=== PATIENT | female | born 1960 | race Caucasian/White ===

== ENCOUNTER 2022-05-12 11:03 | Outpatient (CLI) | payer OTHER, SELFPAY ==
[2022-05-12 17:39] LABS: Kit Draw Collected
== END 2022-05-12 11:04 | disposition home or self-care (01) ==
LOC: ANHGOSHLAB 11:05
PROVIDERS: PCP Family Medicine; Visit Provider Nurse Practitioner Family
DX: E78.2 Mixed hyperlipidemia (principal); E03.9 Hypothyroidism, unspecified; E55.9 Vitamin D deficiency, unspecified; I10 Essential (primary) hypertension
CPT/HCPCS: 36415

== ENCOUNTER → 2022-07-14 10:10 | Outpatient (CLI) | payer OTHER, SELFPAY ==
--- NOTE | ~2022-07-14 | DEXA_ITS ---
Bone Density Report Name: RENETTA BOWEN Age: 62 Sex: Female Ethnicity: White Date of : 1960 Indication: postmenopausal; screening for osteoporosis; prior fracture; Referring Provider: Mary Portillo Study: Bone densitometry was performed. Exam Date: July 14, 2022 Accession number: [id number] Bone Density: Region BMD T-score Z-score Classification AP Spine (L1-L4) 1.041 -0.1 1.4 Normal Femoral Neck (Left) 0.631 -2.0 -0.7 Osteopenia Total Hip (Left) 0.876 -0.5 0.4 Normal Femoral Neck (Right) 0.671 -1.6 -0.3 Osteopenia Total Hip (Right) 0.865 -0.6 0.3 Normal Total Hip Mean 0.871 -0.6 0.4 Normal World Health Organization criteria for BMD impression classify patients as: Normal (T-score at or above -1.0), Osteopenia (T-score between -1.0 and -2.5), or Osteoporosis (T-score at or below -2.5). 10-year Fracture Risk: FRAX not reported because: Prior hip or vertebral fracture Clinical Information Provided by Patient: Have had a previous hip or vertebral fracture Has had a low trauma fracture Has used the following medications: Vitamin D, Calcium Patient maximum height was 65.0 Menopause Age: 52 Drinks caffeinated beverages Onset of menses at age 13 Number of children 1 Impression: The patient has low bone mass, based on the Left Femoral Neck T-score. The patient has risk factors, including: previous fracture. Discussion: INCREASED RISK OF FRACTURE DUE TO HISTORY OF FRACTURE. The patient's previous fracture puts the patient at high risk of a future fracture. In untreated patients, the risk of osteoporotic fracture increases approximately two-fold for each 1.0 SD decrease in T-score. Low bone density is not the only risk factor for fracture; also consider factors such as patient's age, frailty or poor health, risk of falling, risk of injury, previous osteoporotic fracture, family history of osteoporosis, cigarette smoking, low body weight, etc. Not everyone with a low trauma fracture has osteoporosis; osteomalacia and other metabolic bone disorders should also be considered. Patients who have osteoporosis should be evaluated for specific diseases and conditions (secondary causes) that may cause or contribute to bone loss and fracture risk. National Osteoporosis Foundation (NOF) recommends pharmacologic intervention for patients with a prior hip or vertebral fracture regardless of BMD T-score. The patient should follow a healthful lifestyle (good nutrition with adequate calcium and vitamin D, and appropriate weight-bearing exercise). Follow-Up: Consider a repeat BMD and Vertebral Fracture Assessment (VFA) exam in 2 years or sooner if medically necessary, to reassess this patient's status. Reported by: JULIEN on 07/14/2022 10:46:00 AM. Review
== END ==
PROVIDERS: PCP Nurse Practitioner Family; Visit Provider Nurse Practitioner Family
DX: Z78.0 Asymptomatic menopausal state (principal); M85.852 Other specified disorders of bone density and structure, left thigh; M85.851 Other specified disorders of bone density and structure, right thigh
CPT/HCPCS: 77080

== ENCOUNTER 2022-11-13 09:40 | Outpatient (CLI) | payer OTHER, SELFPAY ==
[2022-11-13 18:36] LABS: Alanine Aminotransferase 37 U/L (6-35); Albumin Level 4.7 g/dL (3.5-5.1); Alkaline Phosphatase 79 U/L (38-126); Anion Gap 8 mmol/L (8-16); Aspartate Amino Transferase 40 U/L (14-36); Basophils Absolute Auto 0.1 K/mm3 (0.0-0.1); Bilirubin,Total 0.7 mg/dL (0.2-1.3); Blood Urea Nitrogen 13 mg/dL (7-17); Calcium 8.9 mg/dL (8.4-10.2); Carbon Dioxide 29 mmol/L (22-30); Chloride 101 mmol/L (98-107); Cholesterol 186 mg/dL (0-200); Eosinophils Absolute Auto 0.1 K/mm3 (0-0.3); Eosinophils Percent Auto 2.3 % (0-4.4); Estimated Glomerular Filt Rate > 60; Glucose 114 mg/dL (65-110); HDL Direct 75 mg/dL; Hematocrit 43.1 % (37.0-47.0); Hemoglobin 13.6 g/dL (12.0-15.0); Immature Granulocyte Absolute 0.01 K/mm3 (0.00-0.031); Immature Granulocyte Percent A 0.2 % (0-0.5); Lymphocytes Absolute Auto 1.16 K/mm3 (0.9-3.2); Lymphocytes Percent Auto 19.3 % (18.3-44.2); Mean Corpuscular HGB Conc 31.6 g/dl (32-36); Mean Corpuscular Hemoglobin 31.2 pg (26-34); Mean Corpuscular Volume 98.9 fl (80-100); Mean Platelet Volume 10.9 fl (7.4-10.4); Monocytes Absolute Auto 0.6 K/mm3 (0.1-0.6); Monocytes Percent Auto 9.6 % (2.6-8.5); Neutrophils Absolute Auto 4.1 K/mm3 (1.3-6.7); Neutrophils Percent Auto 67.6 % (45.5-73.1); Platelet Count Result 330 k/mm3 (150-375); Potassium 4.6 mmol/L (3.4-5.0); Red Blood Count 4.36 M/mm3 (4.2-5.4); Red Cell Distribution Width 13.4 % (11.5-14.5); Sodium 138 mmol/L (137-145); Triglycerides 185 mg/dL (<150)
[2022-11-13 18:47] LABS: LDL Cholesterol Direct 81 mg/dL
[2022-11-17 08:55] LABS: Vitamin D 1,25 (OH)2 Total 58 pg/mL (18-72); Vitamin D2 1,25 (OH)2 <8 pg/mL; Vitamin D3 1,25 (OH)2 58 pg/mL
== END 2022-11-13 09:41 | disposition home or self-care (01) ==
LOC: ANHGOSHLAB 09:41
PROVIDERS: PCP Nurse Practitioner Family; Visit Provider Nurse Practitioner Family
DX: E03.9 Hypothyroidism, unspecified (principal); E78.2 Mixed hyperlipidemia; E55.9 Vitamin D deficiency, unspecified
CPT/HCPCS: 36415; 80053; 80061; 82652; 84443; 85025

== ENCOUNTER 2023-05-26 11:05 | Outpatient (CLI) | payer OTHER, SELFPAY ==
[2023-05-26 21:14] LABS: Alanine Aminotransferase 22 U/L (6-35); Aspartate Amino Transferase 36 U/L (14-36)
== END 2023-05-26 11:06 | disposition home or self-care (01) ==
LOC: ANHGOSHLAB 11:07
PROVIDERS: PCP Nurse Practitioner Family
DX: B35.1 Tinea unguium (principal)
CPT/HCPCS: 36415; 84450; 84460

== ENCOUNTER 2024-03-23 11:23 | Outpatient (CLI) | payer OTHER, SELFPAY ==
[2024-03-23 18:37] LABS: Basophils Absolute Auto 0.1 K/mm3 (0.0-0.1); Basophils Percent Auto 1.3 % (0.2-1.2); Eosinophils Absolute Auto 0.1 K/mm3 (0-0.3); Eosinophils Percent Auto 2.2 % (0-4.4); Hematocrit 39.8 % (37.0-47.0); Hemoglobin 13.1 g/dL (12.0-15.0); Immature Granulocyte Absolute 0.02 K/mm3 (0.00-0.031); Immature Granulocyte Percent A 0.4 % (0-0.5); Lymphocytes Absolute Auto 1.31 K/mm3 (0.9-3.2); Lymphocytes Percent Auto 23.5 % (18.3-44.2); Mean Corpuscular HGB Conc 32.9 g/dl (32-36); Mean Corpuscular Hemoglobin 32.5 pg (26-34); Mean Corpuscular Volume 98.8 fl (80-100); Mean Platelet Volume 10.4 fl (7.4-10.4); Monocytes Absolute Auto 0.6 K/mm3 (0.1-0.6); Monocytes Percent Auto 11.3 % (2.6-8.5); Neutrophils Absolute Auto 3.4 K/mm3 (1.3-6.7); Neutrophils Percent Auto 61.3 % (45.5-73.1); Platelet Count Result 336 k/mm3 (150-375); Red Blood Count 4.03 M/mm3 (4.2-5.4); Red Cell Distribution Width 13.7 % (11.5-14.5); White Blood Count 5.6 K/mm3 (4.5-10.0)
[2024-03-23 18:44] LABS: Alanine Aminotransferase 30 U/L (6-35); Albumin Level 4.6 g/dL (3.5-5.1); Alkaline Phosphatase 73 U/L (38-126); Anion Gap 9 mmol/L (4-12); Aspartate Amino Transferase 40 U/L (14-36); Bilirubin,Total 0.7 mg/dL (0.2-1.3); Blood Urea Nitrogen 11 mg/dL (7-17); Calcium 9.2 mg/dL (8.4-10.2); Carbon Dioxide 27 mmol/L (22-30); Chloride 99 mmol/L (98-107); Cholesterol 193 mg/dL (0-200); Estimated Glomerular Filt Rate > 60; Glucose 119 mg/dL (65-110); HDL Direct 85 mg/dL; Potassium 4.4 mmol/L (3.4-5.0); Sodium 135 mmol/L (137-145); Triglycerides 127 mg/dL (<150)
[2024-03-23 18:56] LABS: LDL Cholesterol Direct 77 mg/dL
[2024-03-23 19:37] LABS: Vitamin D 25 Hydroxy 67.9 ng/mL
== END 2024-03-23 11:24 | disposition home or self-care (01) ==
LOC: ANHGOSHLAB 11:23
PROVIDERS: PCP Family Medicine; Visit Provider Family Medicine
DX: E78.5 Hyperlipidemia, unspecified (principal); I10 Essential (primary) hypertension; Z13.29 Encounter for screening for other suspected endocrine disorder; E53.8 Deficiency of other specified B group vitamins; E55.9 Vitamin D deficiency, unspecified; Z00.00 Encounter for general adult medical examination without abnormal findings; R73.9 Hyperglycemia, unspecified
CPT/HCPCS: 36415; 80053; 80061; 82306; 82607; 83036; 84443; 85025

== ENCOUNTER 2025-04-03 08:34 | Outpatient (CLI) | payer OTHER, SELFPAY ==
--- OUTSIDE RECORDS SUMMARY | 2025-04-03 08:46 | XMS_ITS | Encounter Summary ---
Author Organization [employer] Address 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
--- OUTSIDE RECORDS SUMMARY | 2025-04-03 08:46 | XMS_ITS | Encounter Summary ---
Author Organization [facility] Address [address] [place] [address] Care Team Providers Care Nurse Case Management Name Role Phone Suresh Kendall MD Primary Care Provider +1- [phone] Encounter Details Date Type Department Care Team (Late st Contact Info) Description 02/23/2003 Outpatient Historical [facility] Primary Care - [address] [place] [address] Jay Bermeo Social History Tobacco Use Types Packs/Day Years Used Date Smoking Tobacco: Never Assessed Comments Unknown Sex and Gender Information Value Date Recorded Sex Assigned at Not on file 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
--- OUTSIDE RECORDS SUMMARY | 2025-04-03 08:46 | XMS_ITS | Encounter Summary ---
Author Organization [facility] Address 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
--- OUTSIDE RECORDS SUMMARY | 2025-04-03 08:46 | XMS_ITS | Encounter Summary ---
Author Organization [facility] Address [address] [place] [address] Care Team Providers Care Hydraulic Repairer Name Role Phone Suresh Kendall MD Primary Care Provider +1- [phone] Encounter Details Date Type Department Care Team (Late st Contact Info) Description 10/12/[address] 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 TOBACCO USE Patient does not currently use tobacco. MEDICATIONS: Medication list current. CHIEF COMPLAINT Patient complains of.having a rash that started by armpit and has spread all over from under breast to face and eyes HISTORY: HISTORY: 477.0-ALLERGIC RHINITIS, DUE TO POLLEN The allergic rhinitis symptoms have worsened with persistentsymptoms noted since the last visit. The patient has coryza, has rhinorrhea, denies sneezing, denies watery eye. rash, periorbital swelling PAST MEDICAL HISTORY: MEDICAL: see patient sheet for review of med/all/pmh/psh/sh/fh/ros PHYSICAL EXAMINATION: CONSTITUTIONAL: GENERAL APPEARANCE: MILDLY DISTRESSED. NECK/THYROID: Trachea midline. No thyroid enlargement, tenderness, or mass. No supraclavicular or cervical adenopathy. RESPIRATORY: Clear to auscultation and percussion. Normal respiratory effort. CARDIOVASCULAR: CARDIAC: Regular rhythm. No murmurs, rubs, or gallops. ARTERIAL: No aortic bruits. EDEMA/VARICOSITIES OF EXTREMITIES: No edema or varicosities. GASTROINTESTINAL: ABDOMEN: Soft, non-tender, without masses. Bowel sounds active. LIVER/SPLEEN/KIDNEY: No hepatosplenomegaly, tenderness or nodularity. Kidneys not palpable. SKIN: SKIN: periorbital edema and inflammation, widespread excoriated reash OFFICE PROCEDURES: INJECTIONS & IMMUNIZATIONS: . DEPO MEDROL 40, 80, MILLILITERS, INTRAMUSCULAR INJECTION, Left Buttocks, given by bertrand on 10/12/2006; consent form signed, literature not given; ASSESSMENT/PLAN: 477.0-ALLERGIC RHINITIS, DUE TO POLLEN ASSESSMENT: The patient's allergic rhinitis has worsened. Will start medication for better control. MEDICATIONS: 780.6-FEVER OF UNKNOWN ORIGIN ???in setting of periorbital edema? severe rash? MEDICATIONS: PREDNISONE ORAL TABLET 10 MG, 3 po qday x 4 day 2 po qday x 4 day 1 po qday x 4 day, 24 Dispensed, status: NEW PRESCRIPTION, 10/12/2006. LAB ORDERS: Order number: [id number] Test Ordered: ALLERGY PANEL REGION VIII 5640 Order number: [id number] Test Ordered: VIVI (SCREEN W/REFLEX TITER) 5200 Order number: [id number] Test Ordered: CBC W/ DIFFERENTIAL 3150 Order number: [id number] Test Ordered: COMPREHENSIVE METABOLIC PANEL & GFR 1112 Order number: [id number] Test Ordered: TSH (REFLEX FREE T4/FREE T3) 1727 782.1-RASH LAB ORDERS: Order number: [id number] Test Ordered: INJ-DEPO MEDROL 80MG J1040 SPECIALTY REFERRAL: CREDIT NEGOTIATOR Dr. Evelio Schaffer ph: [phone] fax: [phone].if not improving in one week HEALTH MAINTENANCE: LAST BREAST EXAM DATE: 2004. LAST PAP DATE: 2005. LAST DATE PELVIC EXAM: 2005. LAST MAMMOGRAM DATE: 2004. DISCUSSED SMOKING: no. LAST TD: unknown SEXUAL ACTIVITY DISCUSSED: . SUBSTANCE ABUSE DISCUSSED: no. INJURY PREVENTION DISCUSSED: no. DIET AND EXERCISE DISCUSSED: yes. ADVANCED DIRECTIVES DISCUSSED: no. LAST FLU VACCINE:no LAST PNEUMOCOCCAL:no Electronically Signed by: Abraham Abbott MD on Tuesday, April 03, 2007 documented in this encounter Plan of Treatment Not on file documented as of this encounter Visit Diagnoses Not on filedocumented in this encounter Care Teams Hydraulic Repairer Relationship Specialty Start Date End Date Suresh Kendall MD [address] [place] [address] PCP - General Family Practice 04/23/16 documented as of this encounter
--- OUTSIDE RECORDS SUMMARY | 2025-04-03 08:46 | XMS_ITS | Encounter Summary ---
Author Organization [employer] Address 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
--- OUTSIDE RECORDS SUMMARY | 2025-04-03 08:46 | XMS_ITS | Encounter Summary ---
Author Organization [facility] Address [address] [place] [address] Care Team Providers Care Inventory Management Specialist Name Role Phone Suresh Kendall MD Primary Care Provider +1- [phone] Encounter Details Date Type Department Care Team (Late st Contact Info) Description 10/12/[address] [facility] Primary Care - [address] [place] [address] Abraham Abbott MD [address] 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
--- OUTSIDE RECORDS SUMMARY | 2025-04-03 08:46 | XMS_ITS | Encounter Summary ---
Author Organization [facility] Address [address] [place] [address] Care Team Providers Care Test Fixture Assembler Name Role Phone Suresh Kendall MD Primary Care Provider +1- [phone] Encounter Details Date Type Department Care Team (Latest Contact Info) Description 10/12/2006 Outpatient Historical [facility] Primary Care - [address] [place] [address] Fever (Primary Dx) Social History Tobacco Use Types Packs/Day Years Used Date Smoking Tobacco: Never Assessed Comments Unknown Sex and Gender Information Value Date Recorded Sex Assigned at Not on file Legal Sex Female 5:24 AM EP SPECIALIST Gender Identity Not on file Sexual Orientation Not on file documented as of this encounter Plan of Treatment Not on file documented as of this encounter Procedures Procedure Name Priority Date/Time Associated Diagnosis Comments ALLERGY PROFILE, INTERPRETATION Routine 10/12/2006 6:35 PM CDT TSH WITH REFLEX FT4 AND FT3 Routine 10/12/2006 6:35 PM CDT ALLERGY PANEL (EAST REGION) Routine 10/12/2006 6:35 PM CDT CBC WITH DIFFERENTIAL Routine 10/12/2006 6:35 PM CDT CBC WITH DIFFERENTIAL Routine 10/12/2006 6:35 PM CDT COMPREHENSIVE METABOLIC PANEL Routine 10/12/2006 6:35 PM CDT VIVI WITH TITER Routine 10/12/2006 3:00 PM CDT documented in this encounter Results * ALLERGY PROFILE, INTERPRETATION (10/12/2006 6:35 PM CDT) Pathologist [facility] RAST INTERP INTERFAC E SYSTEM Comment: Specific Level of Allergen IGE Class kU/L Specific IGE Antibody ----- --------- 0 <0.35 Absent/Undetectable 1 0.35-0.70 Low Level 2 0.71-3.50 Moderate Level 3 3.51-17.5 High Level 4 17.6-50 Very High Level 5 51-100 Very High Level 6 >100 Very High Level Allergens denoted with a include results using one or more analyte specific reagents. In those cases, the test was developed and its performance characteristics determined by [employer]. It has not been cleared or approved by the U.S. Food and Drug Administration. The FDA has determined that such clearance is not necessary. Lab test performed by: [employer] [id number] [address] CISCO EDDY MD See Result Comment 10/12/2006 6:3 5 PM CDT Narrative INTERFACE SYSTEM - 10/13/2006 7:27 PM CDT Ordered by an unspecified provider. us Historical Provider CHEMISTRY ORDERABLES Edited INTERFACE SYSTEM Refer to clinic/hospital department * (ABNORMAL) ALLERGY PANEL REGION VIII (10/12/2006 6:35 PM CDT) [facility] IGE 12 <VC=911 kU/L INTERFACE SYSTEM Comment: Lab test performed by: [facility] [id number] [facility] [place] [address] [address] CISCO EDDY MD DERMATOPHAGOIDES PTERONYSSINUS IGE <0.35 kU/L INTERFACE SYSTEM D. PTERONYSSINUS % RESP(CLASS) 0 INTERFACE SYSTEM DERMATOPHAGOIDES FARINAE IGE <0.35 kU/L INTERFACE SYSTEM D. FARINAE % RESP (CLASS) 0 INTERFACE SYSTEM CLADOSPORIUM HERBARUM IGE <0.35 kU/L INTERFACE SYSTEM CLADOSPORIUM HERB %RESP(CLASS) 0 INTERFACE SYSTEM A. FUMIGATUS IGE <0.35 kU/L INT ERFACE SYSTEM A. FUMIGATUS % RESP (CLASS) 0 INTERFACE SYSTEM A. ALTERNATA IGE 0.70(H) kU/L INT ERFACE SYSTEM A. ALTERNATA % RESP (CLASS) 2 INTERFACE SYSTEM Comment: Lab test performed by: [facility] [address] [facility] [address] [address] CISCO EDDY MD BOX-ELDER IGE <0.35 kU/L INTERF DOM SYSTEM BOX-ELDER % RESP (CLASS) 0 INTERFACE SYSTEM Comment: Lab test performed by: [facility] [address] [place] [address] [address] CISCO EDDY MD CAT DANDER IGE <0.35 kU/L INTER FACE SYSTEM CAT DANDER % RESP (CLASS) 0 INTERFACE SYSTEM DOG DANDER IGE <0.35 kU/L INTER FACE SYSTEM DOG DANDER % RESP (CLASS) 0 INTERFACE SYSTEM Comment: Lab test performed by: [facility] [place] [address] [place] [address] DR CISCO EDDY MD COCKROACH IGE <0.35 kU/L INTERF DOM SYSTEM COCKROACH % RESP (CLASS) 0 INTERFACE SYSTEM Comment: Lab test performed by: [facility] [place] [address] [facility] [address] DR CISCO EDDY MD ORCHARD GRASS IGE 0.40(H) kU/L IN TERFACE SYSTEM ORCHARD GRASS % RESP (CLASS) 1 INTERFACE SYSTEM Comment: Lab test performed by: [facility] [place] [address] [place] [address] DR CISCO EDDY MD COMMON RAGWEED IGE <0.35 kU/L I NTERFACE SYSTEM COMMON RAGWEED % RESP CLASS 0 INTERFACE SYSTEM Comment: Lab test performed by: [facility] [place] [address] [place] [address] [address] CISCO EDDY MD BIRCH IGE <0.35 kU/L INTERFACE SYSTEM BIRCH % RESP (CLASS) 0 INTERFACE SYSTEM Comment: Lab test performed by: [facility] [place] [address] [facility] [address] DR CISCO EDDY MD OAK IGE <0.35 kU/L INTERFACE SYSTEM OAK % RESP (CLASS) 0 I NTERFACE SYSTEM ELM IGE <0.35 kU/L INTERFACE SYSTEM ELM % RESP (CLASS) 0 I NTERFACE SYSTEM Comment: Lab test performed by: [facility] [place] [address] [place] [address] [address] CISCO EDDY MD ALANA GRASS IGE 0.40(H) kU/L INTER FACE SYSTEM ALANA GRASS % RESP (CLASS) 1 INTERFACE SYSTEM Comment: Lab test performed by: [facility] [place] [address] [place] [address] DR CISCO EDDY MD ALLERGEN RG CARRANZA ELDER <0.35 kU/L INTERFACE SYSTEM ROUGH CARRANZA ELDER %RESP(CLASS) 0 INTERFACE SYSTEM Comment: Lab test performed by: [facility] [place] [address] [place] [address] [address] CISCO EDDY MD 10/12/2006 6:35 PM CDT us Abraham Abbott MD CHEMISTRY ORDERABLES Edited Performing Organization Address [facility] de Phone Number INTERFACE SYSTEM Refer to clinic/hospital department * CBC WITH DIFFERENTIAL (10/12/2006 6:35 PM CDT) Pathologist [facility] NEUTROPHILS 62 45 - 70 % INTERFAC E SYSTEM LYMPHOCYTES 26 16 - 45 % INTERFAC E SYSTEM MONOCYTES 8 3 - 13 % INTERFACE SYSTEM EOSINOPHILS 3 0 - 7 % INTERFAC E SYSTEM BASOPHILS 1 0 - 2 % INTERFACE SYSTEM NEUTROPHIL ABSOLUTE 3.99 1.90 - 7.00 K/uL INTERFACE SYSTEM LYMPHOCYTE ABSOLUTE 1.68 0.70 - 4.50 K/uL INTERFACE SYSTEM MONOCYTE ABSOLUTE 0.49 0.10 - 1.30 K/uL INTERFACE SYSTEM EOSINOPHIL ABSOLUTE 0.20 0.00 - 0.70 K/uL INTERFACE SYSTEM BASOPHILS ABSOLUTE 0.06 0.00 - 0.20 K/uL INTERFACE SYSTEM 10/12/2006 6:35 PM CDT us Abraham Abbott MD HEMATOLOGY ORDERABLES Edited Performing Organization Address [facility] de Phone Number INTERFACE SYSTEM Refer to clinic/hospital department * CBC WITH DIFFERENTIAL (10/12/2006 6:35 PM CDT) WBC 6.4 4.0 - 9.8 K/uL INTERFACE SYSTEM RBC 4.26 3.90 - 4.90 M/uL INTERFACE SYSTEM HEMOGLOBIN 13.3 11.8 - 14.8 g/dL INTERFACE SYSTEM HEMATOCRIT 40.1 35.5 - 44.0 % INTERFACE SYSTEM MCV 94.1 82.0 - 99.0 fL INTERFACE SYSTEM MCH 31.2 27.2 - 32.6 pg INTERFACE SYSTEM MCHC 33.2 31.5 - 35.5 % INTERFACE SYSTEM RDW 13.2 11.5 - 14.5 % INTERFACE SYSTEM RDW-STDEV 45.1 37.1 - 48.7 fL INTERFACE SYSTEM PLATELETS 319 140 - 350 K/uL INTERFACE SYSTEM MPV 11.9 9.3 - 12.4 fL INTERFACE SYSTEM 10/12/2006 6:35 PM CDT Abraham Abbott MD HEMATOLOGY ORDERABLES Edited Performing Organization Address [facility] de Phone Number INTERFACE SYSTEM Refer to clinic/hospital department * TSH WITH REFLEX FT4 AND FT3 (10/12/2006 6:35 PM CDT) Pathologist [facility] TSH 3.29 0.27 - 4.20 uU/mL INTERFACE SYSTEM 10/12/2006 6:35 PM CDT Abraham Abbott MD CHEMISTRY ORDERABLES Edited Performing Organization Address [facility] Phone Number INTERFACE SYSTEM Refer to clinic/hospital department * (ABNORMAL) COMPREHENSIVE METABOLIC PANEL (10/12/2006 6:35 PM CDT) GLUCOSE 98 65 - 99 mg/dL INTERFACE SYSTEM CREATININE 0.65 0.51 - 0.95 mg/dL INTERFACE SYSTEM CALCIUM 8.7 8.4 - 10.2 mg/dL INTERFACE SYSTEM ALKALINE PHOSPHATASE 70 35 - 104 U/L INTERFACE SYSTEM AST 36(H) 12 - 32 U/L INTERFACE SYSTEM ALT 55(H) 0 - 31 U/L INTERFACE SYSTEM TOTAL PROTEIN 7.4 6.3 - 8.6 g/dL INTERFACE SYSTEM ALBUMIN 4.5 3.4 - 4.8 g/dL INTERFACE SYSTEM BILIRUBIN TOTAL 0.3 0.2 - 1.0 mg/dL INTERFACE SYSTEM BUN 13 6 - 20 mg/dL INTERFACE SYSTEM SODIUM 137 135 - 145 mmol/L INTERFACE SYSTEM POTASSIUM 3.9 3.5 - 4.9 mmol/L INTERFACE SYSTEM CHLORIDE 102 96 - 108 mmol/L INTERFACE SYSTEM CO2 24 22 - 30 mmol/L INTERFACE SYSTEM GFR, >60 >=60 mL/min/1.7 sq meter INTERFACE SYSTEM GFR >60 >=60 mL/min/1.7 sq meter INTERFACE SYSTEM Comment: Estimated GFR rate interpretative information for both Americans and non- Americans is available on the [facility] at: [email or web address] Select: Lab Policies and Procedures Select: Reference Ranges - GFR 10/12/2006 6:35 PM CDT Abraham Abbott MD CHEMISTRY ORDERABLES Edited Performing Organization Address [facility] de Phone Number INTERFACE SYSTEM Refer to clinic/hospital department * VIVI WITH TITER (10/12/2006 3:00 PM CDT) VIVI SCREEN NEGATIVE NEGATIVE INTERFACE SYSTEM Comment: Lab test performed by: [facility] [place] [address] [place] [address] [address] CISCO EDDY MD 10/12/2006 3:00 PM CDT Abraham Abbott MD CHEMISTRY ORDERABLES Edited Performing Organization Address [facility] Co de Phone Number INTERFACE SYSTEM Refer to clinic/hospital department documented in this encounter Visit Diagnoses Diagnosis Fever and other physiologic disturbances of temperature regulation- Primary documented in this encounter Care Teams Test Fixture Assembler Relationship Specialty Start Date End Date Suresh Kendall MD [address] [place] [address] PCP - General Family Practice 04/23/16 documented as of this encounter
--- OUTSIDE RECORDS SUMMARY | 2025-04-03 08:46 | XMS_ITS | Encounter Summary ---
Author Organization [facility] Address [address] [place] [address] Care Team Providers Care Screen Printing Press Operator Name Role Phone Suresh Kendall MD Primary Care Provider +1- [phone] Encounter Details Date Type Department Care Team (Late st Contact Info) Description 10/12/2006 Outpatient Historical [facility] Primary Care - [address] [place] [address] Abraham Abbott MD [address] [facility] [address] [place] [address] Social History Tobacco Use Types Packs/Day Years Used Date Smoking Tobacco: Never Assessed Comments Unknown Sex and Gender Information Value Date Recorded Sex Assigned at Not on file Legal 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
--- OUTSIDE RECORDS SUMMARY | 2025-04-03 08:46 | XMS_ITS | Encounter Summary ---
Author Organization [facility] Address [address] [place] [address] Care Team Providers Care Mining Captain Name Role Phone Suresh Kendall MD Primary Care Provider [phone]- [phone] Encounter Details Date Type Department Care Team (Late st Contact Info) Description 10/12/2006 Outpatient Historical [facility] Primary Care - [address] [place] [address] Abraham Abbott MD [address] [facility] [address] [place] [address] Social History Tobacco Use Types Packs/Day Years Used Date Smoking Tobacco: Never Assessed Comments Unknown Sex and Gender Information Value Date Recorded Sex Assigned at Not on file Legal Sex Female 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
--- OUTSIDE RECORDS SUMMARY | 2025-04-03 08:46 | XMS_ITS | Encounter Summary ---
Author Organization [facility] Address 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
--- OUTSIDE RECORDS SUMMARY | 2025-04-03 08:46 | XMS_ITS | Encounter Summary ---
Author Organization [employer] Address 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
--- OUTSIDE RECORDS SUMMARY | 2025-04-03 08:46 | XMS_ITS | Encounter Summary ---
Author Organization [employer] Address [address] [place] [address] Care Team Providers Care [employer] Humanities Teacher Name Role Phone Suresh Kendall MD Primary Care Provider [phone]- [phone] Encounter Details Date Type Department Care Team (Latest Contact Info) Description 02/27/2003 Outpatient Historical 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
--- OUTSIDE RECORDS SUMMARY | 2025-04-03 08:47 | XMS_ITS | Encounter Summary ---
Author Organization [facility] Address 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
--- OUTSIDE RECORDS SUMMARY | 2025-04-03 08:47 | XMS_ITS | Clinical Summary ---
Author Organization [facility] Address [address] [place] [address] Phone Care Team Providers Care Audiovisual Librarian Name Role Phone Suresh Kendall MD Primary Care Provider Allergies Active Allergy Reactions Criticality Noted Date Comments No Known Allergies 10/12/2006 Medications PREDNISONE 10 MG TAB 3 po qday x 4 day 2 po qday x 4 day 1 po qday x 4 day 24.00 0 10/12/2006 Active HYDROXYZINE 25 MG TAB 1-2 tabs po tid prn itching 60.00 0 10/12/2006 Active ZITHROMAX Z-KELVIN 250 mg Oral Tab use as directed 1.00 0 08/24/2007 Active Active Problems Problem Noted Date Diagnosed Date Allergic rhinitis due to pollen 10/12/2006 Fever, unspecified 10/12/2006 Overview (06/18/2010): Updating IMO/ICD9 Code and Description Rash and other nonspecific skin eruption 007 Encounters Date Type Department Care Team Description 03/20/2025 External Device Data [facility] ABSTRACTION Provider, Abstract 01/16/2025 External Device Data [facility] ABSTRACTION Provider, Abstract from Last 3 Months Family History Medical History Relation Name Comments Breast Cancer Neg Hx Social History Tobacco Use Types Packs/Day Years Used Date Smoking Tobacco: Never Assessed Comments Unknown Sex and Gender Information Value Date Recorded Sex Assigned at Not on file 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 Gender Identity Not on file Sexual Orientation Not on file Plan of Treatment Health Maintenance Due Date Last Done Comments DTAP/TDAP/TD VACCINES (1 - Tdap) 1981 HPV/Cotest (21-29) 1983 CERVICAL CANCER SCREENING 1992 HPV/Cotest (30-65) 1992 PAP SMEAR 1992 COLORECTAL SCREENING 2007 Colorectal Cancer Screening 2007 FIT-DNA Q 3 years 2007 FIT/FOBT Q 1 year 2007 Flex Sig/CT Colonography Q 5 years 2007 ZOSTER VACCINE (1 of 2) 2012 INFLUENZA VACCINE (#1) 2024 BREAST CANCER SCREENING 11/23/2025 11/24/19 25, 05/13/2023, 04/03/2022, Additional history exists RSV VACCINE (60+ or ) (1 - 1-dose 75+ series) 2037 Procedures Procedure Name Priority Date/Time Associated Diagnosis Comments MAMMO 3D EBONY SCREEN BILAT W OR WO CAD Routine 11/23/2024 10:08 AM CDT Screening mammogram for breast cancer from Last 3 Months or Most Recently Relevant to Health Maintenance Results * MAMMO 3D EBONY SCREEN BILAT W OR WO CAD (11/23/2024 10:08 AM CDT) Anatomical Region Laterality Modality Breast Bilateral Mammography 11/23/2024 10:0 8 AM CDT Impressions 11/23/2024 10:57 AM CDT IMPRESSION: No mammographic evidence of malignancy is identified in either breast. Routine screening mammography is recommended in one year. OVERALL FINAL ASSESSMENT: BI-RADS CATEGORY 1: Negative. [facility] N[facility] 11/23/2024 10:57 AM CDT EXAMINATION: MAMMO 3D EBONY SCREEN BILAT W OR WO CAD DATE: 11/23/2024 10:08 AM HISTORY: Routine screening mammography. COMPARISON: 05/13/2023, 04/03/2022, 06/20/2019. TECHNIQUE: Bilateral screening mammogram was performed. Low-dose full-field digital breast tomosynthesis examination was performed with 2D and 3D acquisitions. Examination is read in conjunction with computer aided detection. BREAST COMPOSITION: There are scattered areas of fibroglandular density. FINDINGS: No new suspicious findings are identified in either breast on mammogram. Collette Kramer MD MAMMO ORDERABLES Final Result from Last 3 Months or Most Recently Relevant to Health Maintenance Insurance [employer] [facility] [facility] [employer] Care Teams Audiovisual Librarian Relationship Specialty Start Date End Date Suresh Kendall MD [address] [place] [address] PCP - General Family Practice 04/23/16
--- OUTSIDE RECORDS SUMMARY | 2025-04-03 08:47 | XMS_ITS | Encounter Summary ---
Author Organization [facility] Address [address] [place] [address] Care Team Providers Care Wildlife Manager Name Role Phone Sruesh Kendall MD Primary Care Provider [phone] Encounter Details Date Type Department Care Team (Late st Contact Info) Description 08/24/2007 Orders Only [facility] Primary Care - [facility] [address] 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 LAST VISIT:10-12-06 PCP: [facility] PHONE NUMBER: [phone] WHO CALLED: Patient called. CURRENT ALLERGY LIST: NO KNOWN DRUG ALLERGY PHARMACY NUMBER: [phone] PROBLEMS: CONGESTION: Patient complains of sinus congestion, complains of head congestion. Therapies tried include an over the counter nasal decongestant. COUGH:Patient complains of cough. not prod. FEVER: . 100 x 2 days. chills , ears feel clogged. SECTION 1: REQUESTED ACTION toni 08/24/07 at 02:33 pm: wants rx called out.................lizzette DOCTOR`S RESPONSE: selvin 08/24/07 at 04:01 pm MEDICATIONS: Call in to Pharmacy ZITHROMAX Z-KELVIN ORAL TABLET 250 MG, use as directed, 1 Dispensed, status: NEW PRESCRIPTION, 08/24/2007. use also Mucinex D OTC FINAL ACTION: toni 08/24/07 at 04:17 pm Spoke with patient 08/24/07 at 04:17 pm. Called pharmacy at 08/24/07 at 04:17 pm. / lizzette Electronically Signed by: Lizzette Lindsay on Friday, August 24, 2007 documented in this encounter Plan of Treatment Not on file documented as of this encounter Visit Diagnoses Not on filedocumented in this encounter Care Teams Wildlife Manager Relationship Specialty Start Date End Date Suresh Kendall MD [address] [place] [address] PCP - General Family Practice 04/23/16 documented as of this encounter
[2025-04-03 13:06] LABS: Hematocrit 39.7 % (37.0-47.0); Hemoglobin 12.7 g/dL (12.0-15.0); Immature Granulocyte Percent A 0.4 % (0-0.5); Lymphocytes Absolute Auto 1.30 K/mm3 (0.9-3.2); Mean Corpuscular HGB Conc 32.0 g/dl (32-36); Mean Corpuscular Hemoglobin 31.4 pg (26-34); Mean Corpuscular Volume 98.0 fl (80-100); Nucleated Red Blood Cells Absolute Auto 0.000 K/mm3 (0.0-0.012); Nucleated Red Blood Cells Perc 0.0 % (0.0-0.2); Platelet Count Result 301 k/mm3 (150-375); Red Blood Count 4.05 M/mm3 (4.2-5.4); White Blood Count 5.3 K/mm3 (4.5-10.0)
[2025-04-03 13:09] LABS: Alanine Aminotransferase 28 U/L (6-35); Albumin Level 4.7 g/dL (3.5-5.1); Alkaline Phosphatase 69 U/L (38-126); Anion Gap 9 mmol/L (4-12); Aspartate Amino Transferase 38 U/L (14-36); Bilirubin,Total 0.6 mg/dL (0.2-1.3); Blood Urea Nitrogen 10 mg/dL (7-17); Calcium 9.1 mg/dL (8.4-10.2); Carbon Dioxide 28 mmol/L (22-30); Chloride 99 mmol/L (98-107); Cholesterol 209 mg/dL (0-200); Estimated Glomerular Filt Rate > 60; Glucose 110 mg/dL (65-110); HDL Direct 78 mg/dL; Sodium 136 mmol/L (137-145); Total Protein 7.9 g/dL (6.3-8.2); Triglycerides 194 mg/dL (<150)
[2025-04-03 13:17] LABS: Potassium 4.5 mmol/L (3.4-5.0)
[2025-04-03 15:01] LABS: Hemoglobin A1C 6.1 % (<5.7)
[2025-04-03 16:24] LABS: Thyroid Stimulating Hormone Reflex 2.800 uIU/mL (0.465-4.68)
== END 2025-04-03 08:35 | disposition home or self-care (01) ==
LOC: ANHGOSHLAB 08:35
PROVIDERS: PCP Family Medicine; Visit Provider Nurse Practitioner Family
DX: E78.5 Hyperlipidemia, unspecified (principal); R73.03 Prediabetes; I10 Essential (primary) hypertension
CPT/HCPCS: 36415; 80053; 80061; 83036; 84443; 85025